=== PATIENT | female | born 2000 | race Hispanic/Latino ===

== ENCOUNTER 2024-03-16 00:45 | Emergency (ER) | payer OTHER, MEDICAID, SELFPAY ==
[2024-03-16] VITALS (8 sets, daily range): BP systolic 113–119; BP diastolic 55–56; PULSE 92–121; RESP 16; TEMP 36.7; O2SAT 98–100; BMI 31.6
--- NOTE | 2024-03-16 00:50 | DI.US.S_ITS ---
PROCEDURE: US PELVIC COMPLETE INDICATIONS: ABD PAIN IN TECHNIQUE: Real-time scanning was performed of the pelvic organs, with image documentation. Additional endovaginal scanning was necessary due to incomplete visualization of the adnexal and endometrial structures by transabdominal scanning. Doppler and color flow imaging was also performed to evaluate arterial and venous blood flow to the bilateral ovaries. COMPARISON: None. FINDINGS: Uterus: Uterus is anteverted and normal in size at 7.8 x 5.1 x 6.2 cm. The myometrium is homogeneous. The endometrium measures 15.7 mm combined thickness. No intrauterine gestational sac identified. Patient with reported test and LMP of 02/12/2024 corresponding to estimated gestational age of 4 weeks, 5 days. Ovaries: The right ovary measures 2.0 x 3.6 x 2.4 cm, with a calculated ovarian volume of 9.1 cc. The left ovary measures 2.3 x 1.5 x 2.7 cm, with a calculated ovarian volume of 4.8 cc. The ovaries have a normal sonographic appearance. Less than 12 follicles can be seen in each ovary. There is a simple right adnexal cyst measuring up to 1.5 cm. Doppler and color flow imaging demonstrate intact arterial and venous blood flow to the bilateral ovaries. Other: No pathologic free abdominal or pelvic fluid. IMPRESSION: No intrauterine gestational sac identified. No sonographic evidence of ectopic at this time. Recommend serial beta HCG and pelvic ultrasound as clinically indicated. Approved by: Ivy Loo M.D.,Ph.D. on 03/16/2024 at 2:20
[2024-03-16 00:59] LABS: Add Manual Diff / Slide Review NO; Basophils Absolute Auto 0 /uL (0-100); Basophils Percent Auto 0.4 % (0-2); Eosinophils Absolute Auto 100 /uL (0-450); Eosinophils Percent Auto 0.8 % (2-4); Hemoglobin 13.8 g/dL (12.0-16.0); Lymphocytes Absolute Auto 4900 /uL (1100-4500); Lymphocytes Percent Auto 38.5 % (25-40); Mean Corpuscular HGB Conc 32.8 % (30-36); Mean Corpuscular Hemoglobin 26.3 PG (26-34); Monocytes Absolute Auto 700 /uL (0-900); Monocytes Percent Auto 5.6 % (3-14); Neutrophils Absolute Auto 7000 /uL (1500-7000); Neutrophils Percent Auto 54.7 % (50-75); Platelet Count 239 X10^3/uL (150-400); Red Blood Cell Count 5.24 X10^6/uL (4.0-5.2); Red Cell Distribution Width 15.7 % (11.6-14.8); White Blood Cell Count 12.8 X10^3/uL (4.5-11.0)
[2024-03-16 01:06] LABS: Alanine Aminotransferase 21 IU/L (<35); Albumin 4.8 g/dL (3.5-5.0); Albumin Globulin Ratio 1.3 (1.0-2.8); Alkaline Phosphatase 80 U/L (38-126); Aspartate Aminotransferase 32 IU/L (14-36); BUN Creatinine Ratio 28.6 (6-22); Bilirubin Total 0.7 mg/dL (0.2-1.3); Blood Urea Nitrogen 18 mg/dL (7-17); Calcium 9.5 mg/dL (8.4-10.2); Carbon Dioxide 21 mmol/L (22-32); Chloride 108 mmol/L (98-107); Estimated Glomerular Filt Rate > 60 mL/min (>60); Globulin 3.8 g/dL (1.7-4.1); Glucose 101 mg/dL (70-100); HEMOLYSIS 89 (0-50); Potassium 4.1 mmol/L (3.4-5.1); Sodium 139 mmol/L (137-145); Total Protein 8.6 g/dL (6.3-8.2)
--- NOTE | 2024-03-16 01:11 | ED.ABDPAIN ---
HPI - Abdominal Pain General Chief Complaint: Abdominal Pain Stated Complaint: abd pain Time Seen by Provider: 03/16/24 00:50 Source: EMS Mode of arrival: Ambulatory History of Present Illness HPI narrative: 23-year-old G4 P 1 presents for upper abdominal cramping and pain. Patient states that she had a recent positive test and was told that her hCG quant levels were in the 40s earlier this week at her primary doctor's office in [facility]. Patient states that she had some stomach cramping last night, but this evening the pain woke her up from sleep. She described it as both ?food poisoning and contractions at once? all across her abdomen. She states that the pain was causing her to feel faint and so she called 911. Patient declined medications EN route by EMS. Patient has no confirmed IUP this . Denies history of intra-abdominal surgeries Related Data Previous Rx's Medication Instructions Recorded dicyclomine 20 mg tablet 20 mg PO TID #30 tabs 03/16/24 ondansetron 4 mg disintegrating 4 mg PO Q8H PRN nausea and 03/16/24 tablet vomiting #30 tabs Allergies Allergy/AdvReac Type Severity Reaction Status Date / Time cephalexin Allergy Verified 03/16/24 01:51 hydrocodone Allergy Verified 03/16/24 01:51 propranolol Allergy Verified 03/16/24 01:51 Patient History Social History Smoking Status: Never smoker Smoking Status: Never smoker Substance Use Type: does not use Exam Initial Vital Signs Initial Vital Signs: Vital Signs Temperature 98.1 F 03/16/24 00:53 Pulse Rate 113 H 03/16/24 00:53 Respiratory Rate 16 03/16/24 00:53 Blood Pressure 113/55 L 03/16/24 00:53 Pulse Oximetry 100 03/16/24 00:53 Oxygen Delivery Method Room Air 03/16/24 00:53 Const: Awake, alert, in pain, uncomfortable Cardiac: Tachycardia, regular rhythm RESP: unlabored, clear bilaterally, no wheezing GI: Soft, generalized upper quadrant tenderness to deep palpation, no rebound, no guarding Skin: Warm, Dry, intact, no rashes Neuro: AO x3, CN II-XII grossly intact, moves all extremities Course Orders Ordered: Discontinued Medications Morphine Sulfate (Morphine 4 Mg/Ml Inj) 4 mg IV NOW ONE Stop: 03/16/24 01:13 Last Admin: 03/16/24 01:58 Dose: Not Given Documented By: MAXIMO Vital Signs Vital signs: Vital Signs - 8 hr 03/16/24 00:53 Temperature 98.1 F Pulse Rate 113 H Respiratory Rate 16 Blood Pressure 113/55 L Pulse Oximetry 100 Oxygen Delivery Method Room Air MDM - Abdominal Pain Lab Data 03/16/24 00:34 03/16/24 00:34 Labs: Lab Results 03/16/24 Range/Units 00:34 WBC 12.8 H (4.5-11.0) X10^3/uL RBC 5.24 H (4.0-5.2) X10^6/uL Hgb 13.8 (12.0-16.0) g/dL Hct 42.0 (36-46) % MCV 80.0 (80-100) fL MCH 26.3 (26-34) PG MCHC 32.8 (30-36) % RDW 15.7 H (11.6-14.8) % Plt Count 239 (150-400) X10^3/uL Neut % (Auto) 54.7 (50-75) % Lymph % (Auto) 38.5 (25-40) % [place] % (Auto) 5.6 (3-14) % Eos % (Auto) 0.8 L (2-4) % Baso % (Auto) 0.4 (0-2) % Neut # (Auto) 7000 (5791-1430) /uL Lymph # (Auto) 4900 H (0939-6796) /uL [place] # (Auto) 700 (0-900) /uL Eos # (Auto) 100 (0-450) /uL Baso # (Auto) 0 (0-100) /uL Sodium 139 (137-145) mmol/L Potassium 4.1 (3.4-5.1) mmol/L Chloride 108 H (98-107) mmol/L Carbon Dioxide 21 L (22-32) mmol/L BUN 18 H (7-17) mg/dL Creatinine 0.63 (0.52-1.04) mg/dL Estimated GFR > 60 (>60) mL/min BUN/Creatinine Ratio 28.6 H (6-22) Glucose 101 H (70-100) mg/dL Calcium 9.5 (8.4-10.2) mg/dL Total Bilirubin 0.7 (0.2-1.3) mg/dL AST 32 (14-36) IU/L ALT 21 (<35) IU/L Alkaline Phosphatase 80 (38-126) U/L Total Protein 8.6 H (6.3-8.2) g/dL Albumin 4.8 (3.5-5.0) g/dL Globulin 3.8 (1.7-4.1) g/dL Albumin/Globulin Ratio 1.3 (1.0-2.8) Lipase 88 (23-300) U/L HCG, Quant 213.23 mIU/mL Imaging Data US - APPLIANCE SALES [employer]OCIATE: Radiologist's Impression: PROCEDURE: US PELVIC COMPLETE INDICATIONS: ABD PAIN IN TECHNIQUE: Real-time scanning was performed of the pelvic organs, with image documentation. Additional endovaginal scanning was necessary due to incomplete visualization of the adnexal and endometrial structures by transabdominal scanning. Doppler and color flow imaging was also performed to evaluate arterial and venous blood flow to the bilateral ovaries. COMPARISON: None. FINDINGS: Uterus: Uterus is anteverted and normal in size at 7.8 x 5.1 x 6.2 cm. The myometrium is homogeneous. The endometrium measures 15.7 mm combined thickness. No intrauterine gestational sac identified. Patient with reported test and LMP of 02/12/2024 corresponding to estimated gestational age of 4 weeks, 5 days. Ovaries: The right ovary measures 2.0 x 3.6 x 2.4 cm, with a calculated ovarian volume of 9.1 cc. The left ovary measures 2.3 x 1.5 x 2.7 cm, with a calculated ovarian volume of 4.8 cc. The ovaries have a normal sonographic appearance. Less than 12 follicles can be seen in each ovary. There is a simple right adnexal cyst measuring up to 1.5 cm. Doppler and color flow imaging demonstrate intact arterial and venous blood flow to the bilateral ovaries. Other: No pathologic free abdominal or pelvic fluid. IMPRESSION: No intrauterine gestational sac identified. No sonographic evidence of ectopic at this time. Recommend serial beta HCG and pelvic ultrasound as clinically indicated. Approved by: Ivy Loo M.D.,Ph.D. on 03/16/2024 at 2:20 MDM Narrative Medical decision making narrative: Abdominal pain in early . Possibility that this is unlikely related to as pain is more in the bilateral upper quadrants of her abdomen, however since she is in 1st trimester with positive hCG earlier in the week an ultrasound was ordered. Patient was given pain medications and laboratory work ordered. Laboratory work shows WBC count 12.8, hemoglobin 13.8, platelets 239, sodium 139, potassium 4.1, creatinine 0.63, normal liver enzymes, hCG quant 213, up from earlier in the week per patient report. Ultrasound shows no IUP, no other concerning findings. At this patient's hCG level unlikely that anything would be seen at this stage. No evidence of ectopic . Patient reassessed, states that she feels significantly better. Lab and imaging findings explained to patient, unable to obtain CT due to positive status. Antispasmodic and antinausea medication sent to pharmacy of choice. Patient counseled on the importance of OBGYN follow up. Strict ED return precautions discussed at bedside. Discharge Plan Departure Patient Disposition: Home Clinical Impression: Abdominal cramping, Early stage of Instructions: DI for Abdominal Pain -- Early Activity Restrictions/Additional Instructions: Your laboratory work here today is reassuring. Your hCG quant level is 213. An antispasmodic medication has been sent to your pharmacy as well as nausea medication that are safe in . Prescriptions: New dicyclomine 20 mg tablet 20 mg PO TID Qty: 30 0RF ondansetron 4 mg tablet,disintegrating 4 mg PO Q8H PRN (Reason: nausea and vomiting) Qty: 30 0RF Referrals: See Santos DO [Primary Care Provider] - Stand Alone Forms: Patient Portal/API
[2024-03-16 01:23] LABS: HCG Quantitative /Beta subunit 213.23 mIU/mL
[2024-03-16 01:35] LABS: Lipase 88 U/L (23-300)
== END 2024-03-16 04:35 | disposition home or self-care (01) ==
PROVIDERS: Emergency Provider Emergency Medicine; PCP Family Medicine
DX: O26.891 Other specified pregnancy related conditions, first trimester (principal); R10.10 Upper abdominal pain, unspecified; Z3A.00 Weeks of gestation of pregnancy not specified
CPT/HCPCS: 36415; 76830; 76856; 80053; 83690; 84702; 85025; 93975; 99283; 99284

== ENCOUNTER 2024-04-12 20:12 | Emergency (ER) | payer OTHER, MEDICAID, SELFPAY ==
[2024-04-12 20:17] VITALS: BP 99/52; PULSE 94; RESP 18; TEMP 36.7; O2SAT 97; BMI 32.9
--- NOTE | 2024-04-12 20:44 | ED_ITS ---
HPI - Nausea/Vomiting/Diarrhea General Chief complaint: Nausea/Vomiting/Diarrhea Stated complaint: sent by doctor, 8weeks , N/V Time Seen by Provider: 04/12/24 20:41 Source: patient Mode of arrival: Ambulatory History of Present Illness HPI Narrative: 23-year-old female current , AB1, last menstrual period 02/12/2024, [facility], clinic at [facility], we will be transitioning to [place] as she advances through the , lives in [facility], had ultrasound [facility] imaging yesterday and was told she was at gestation 8 weeks 5 days. She has had ongoing nausea and vomiting this , has prescription for ODT Zofran, took 1 of these tablets during the day today. Still feels quite nauseated, unable to keep medicines or food down. No diarrhea. No black or red stools. No injury or trauma. She denies any headache or neck pain or photophobia symptoms. She denies chest pain or shortness of breath. She has not had vaginal bleeding or spotting. She has no vaginal discharge. She has not had pain with urination. She denies flank pain. Related Data Previous Rx's Medication Instructions Recorded dicyclomine 20 mg tablet 20 mg PO TID #30 tabs 03/16/24 ondansetron 4 mg disintegrating 4 mg PO Q8H PRN nausea and 03/16/24 tablet vomiting #30 tabs nitrofurantoin macrocrystal 100 mg 100 mg PO BID 7 days #14 caps 04/12/24 capsule (Macrodantin) Allergies Allergy/AdvReac Type Severity Reaction Status Date / Time cephalexin Allergy Verified 04/12/24 20:50 hydrocodone Allergy Verified 04/12/24 20:50 propranolol Allergy Verified 04/12/24 20:50 Review of Systems Review of Systems Narrative: see HPI Patient History Social History Smoking Status: Never smoker Smoking Status: Never smoker Substance Use Type: does not use Exam Narrative Exam Narrative: GENERAL: Well-developed patient, in mild distress. HEAD: Atraumatic. Normocephalic. EYES: Pupils equal round and reactive. Extraocular motions intact. No scleral icterus. No injection or drainage. ENT: Nose without bleeding, purulent drainage. Throat without erythema, tonsillar hypertrophy or exudate. Airway patent. NECK: Trachea midline. Non tender CARDIOVASCULAR: Regular rate and rhythm without murmurs, gallops, or rubs. RESPIRATORY: Clear to auscultation. Breath sounds equal bilaterally. No wheezes, rales, or rhonchi. GASTROINTESTINAL: Abdomen soft, non-tender, nondistended. EXTREMITIES: No edema or joint tenderness. BACK: Nontender without deformity or crepitance. No flank tenderness. NEURO: AOx3. SKIN: No rash or erythema of visible areas Initial Vital Signs Initial Vital Signs: Vital Signs Temperature 98.1 F 04/12/24 20:17 Pulse Rate 94 H 04/12/24 20:17 Respiratory Rate 18 04/12/24 20:17 Blood Pressure 99/52 L 04/12/24 20:17 Pulse Oximetry 97 04/12/24 20:17 Oxygen Delivery Method Room Air 04/12/24 20:17 Course Orders Ordered: ED Orders 04/12/24 20:37 Ictotest Urine Stat Urine Culture Stat Urine Microscopic Stat 04/12/24 20:40 Complete Blood Count AUTO DIFF Stat Comprehensive Metabolic Panel Stat Lipase Stat Discontinued Medications Diphenhydramine HCl (Diphenhydramine 25 Mg Tablet) 50 mg PO NOW ONE Stop: 04/12/24 23:26 Last Admin: 04/12/24 23:31 Dose: 50 mg Documented By: ALO Sodium Chloride (Normal Saline 0.9%) 1,000 mls @ 1,000 mls/hr IV BOLUS ONE Stop: 04/12/24 22:04 Last Infusion: 04/12/24 22:06 Dose: Infused Documented By: Admin: 04/12/24 21:06 Dose: 1,000 mls/hr Documented By: JEWEL Ceftriaxone Sodium 1,000 mg/ (Sodium Chloride) 100 mls @ 200 mls/hr IV NOW ONE Stop: 04/12/24 22:08 Last Infusion: 04/12/24 22:58 Dose: Infused Documented By: Admin: 04/12/24 22:25 Dose: 200 mls/hr Documented By: JEWEL Ondansetron HCl (Ondansetron 4 Mg/2 Ml Inj) 4 mg IV NOW PRN PRN Reason: Nausea And Vomiting Ondansetron HCl (Ondansetron 4 Mg Odt) 4 mg PO NOW PRN PRN Reason: Nausea And Vomiting Ondansetron HCl (Ondansetron 4 Mg/2 Ml Inj) 4 mg IV NOW ONE Stop: 04/12/24 20:54 Last Admin: 04/12/24 21:04 Dose: 4 mg Documented By: JEWEL Vital Signs Vital signs: Vital Signs - 8 hr 04/12/24 20:17 04/12/24 23:18 04/12/24 23:19 Temperature 98.1 F Pulse Rate 94 H 92 H Respiratory Rate 18 Blood Pressure 99/52 L 99/65 Pulse Oximetry 97 99 Oxygen Delivery Method Room Air 04/12/24 23:19 Temperature Pulse Rate 89 Respiratory Rate Blood Pressure Pulse Oximetry 99 Oxygen Delivery Method MDM - Nausea/Vomiting/Diarrhea Lab Data Attestation: I reviewed the patient's lab results. 04/12/24 20:40 04/12/24 20:40 Labs: Lab Results 04/12/24 04/12/24 Range/Units 20:37 20:40 WBC 11.5 H (4.5-11.0) X10^3/uL RBC 5.02 (4.0-5.2) X10^6/uL Hgb 13.3 (12.0-16.0) g/dL Hct 40.2 (36-46) % MCV 80.1 (80-100) fL MCH 26.6 (26-34) PG MCHC 33.2 (30-36) % RDW 15.3 H (11.6-14.8) % Plt Count 279 (150-400) X10^3/uL Neut % (Auto) 66.8 (50-75) % Lymph % (Auto) 24.9 L (25-40) % [place] % (Auto) 7.2 (3-14) % Eos % (Auto) 0.5 L (2-4) % Baso % (Auto) 0.6 (0-2) % Neut # (Auto) 7700 H (7267-7142) /uL Lymph # (Auto) 2900 (5144-7657) /uL [place] # (Auto) 800 (0-900) /uL Eos # (Auto) 100 (0-450) /uL Baso # (Auto) 100 (0-100) /uL Sodium 137 (137-145) mmol/L Potassium 3.6 (3.4-5.1) mmol/L Chloride 104 (98-107) mmol/L Carbon Dioxide 23 (22-32) mmol/L BUN 8 (7-17) mg/dL Creatinine 0.63 (0.52-1.04) mg/dL Estimated GFR > 60 (>60) mL/min BUN/Creatinine Ratio 12.7 (6-22) Glucose 97 (70-100) mg/dL Calcium 9.6 (8.4-10.2) mg/dL Total Bilirubin 0.9 (0.2-1.3) mg/dL AST 73 H (14-36) IU/L ALT 89 H (<35) IU/L Alkaline Phosphatase 74 (38-126) U/L Total Protein 8.6 H (6.3-8.2) g/dL Albumin 4.7 (3.5-5.0) g/dL Globulin 3.9 (1.7-4.1) g/dL Albumin/Globulin Ratio 1.2 (1.0-2.8) Lipase 59 (23-300) U/L Ur Bilirubin Confirm Negative (Negative) Urine RBC 0-1/hpf (0-5/HPF) Urine WBC 1-5/hpf (0-5/HPF) Ur Squamous Epith Cells None seen (0-5/HPF) Urine Bacteria Many (>30) H (None) Urine Mucus 1+ H (Negative) Ur Culture Indicated? Specimen cultured Vol Urine Centrifuged 10ml (spun) Urine Dip Bedside Urine Glucose Negative Bedside Urine Bilirubin + 1 Bedside Urine Ketone + 15 Urine Specific [place] 1.030 Bedside Urine Occult Blood - Negative Bedside Urine pH 5.5 Bedside Urine Protein +/- 15 Bedside Urine Urobilinogen - Negative Bedside Urine Nitrite - Negative Bedside Urine Leukocytes +/- 15 Esterase MDM Narrative Medical decision making narrative: 23-year-old female currently at 8 weeks 6 days by ultrasound done yesterday [facility] [employer] [facility], ongoing nausea through this for which she is tried ODT Zofran, worsening nausea and vomiting today nonbloody. Afebrile, sirs screen negative. Abdomen benign. No vaginal bleeding symptoms. IV fluid, IV Zofran given, improved symptoms. Urinalysis did show predominance of bacteriuria without many inflammatory cells, urine culture requested in context of . First dose antibiotic Macrobid given, prescription for 7 day course. Advised follow up Monday to check urine culture in symptoms in her regular provider clinic, follow up with OB provider as planned. If confirmation of urinary tract infection advised also follow up urinalysis to document culture of cure. Improved, discharged home. Return precautions discussed Discharge Plan Departure Patient Disposition: Home Clinical Impression: Hyperemesis gravidarum, Urinary tract infection Instructions: DI for Urinary Tract Infection (UTI), DI for Vomiting -- Adult Activity Restrictions/Additional Instructions: Current with morning sickness symptoms, home supply of ODT oral dissolvable Zofran used on occasion, worsening nausea and vomiting today. No fever on triage. Urinalysis was suspicious for infection, urine culture requested, IV ceftriaxone antibiotic given. Subsequently plan was to consider cephalosporins for discharge antibiotic, however the computer prompted allergy warning, history of cephalexin cephalosporins allergic reaction. He seemed to be tolerating the ceftriaxone quite well, it is a 3rd generation cephalosporin. We could give a 3rd generation oral cephalosporin but perhaps we should just avoid cephalosporins in general for now. Antibiotic Macrobid/Macrodantin antibiotic sent to your pharmacy for further antibiotic coverage for urinary tract infection. If you have any itching or rash symptoms consider delayed reaction to ceftriaxone, would start Benadryl medication, call 911 if you have trouble breathing or tightening of the throat symptoms or any other concerns of possible reaction to the single dose ceftriaxone. Regarding your urinary tract infection, drink plenty of fluids. You were given IV fluids while in the emergency department, and antinausea medications, felt better. Continue to use your antinausea medications as needed. Continue to follow up with your OB providers as planned. Consider recheck in clinic on Monday to make sure your symptoms are improving, and also to make sure the urine culture shows appropriate antibiotic prescribed. Consider recheck at the end of the course of your antibiotic to make sure that the infection has cleared, in the context of your current . Prescriptions: New nitrofurantoin macrocrystal [Macrodantin] 100 mg capsule 100 mg PO BID 7 Days Qty: 14 0RF Rx Instructions: must administer with a meal/food No Action dicyclomine 20 mg tablet 20 mg PO TID Qty: 30 0RF ondansetron 4 mg tablet,disintegrating 4 mg PO Q8H PRN (Reason: nausea and vomiting) Qty: 30 0RF Referrals: See Santos DO [Primary Care Provider] - Stand Alone Forms: Patient Portal/API
[2024-04-12 20:54] LABS: Add Manual Diff / Slide Review NO; Basophils Absolute Auto 100 /uL (0-100); Basophils Percent Auto 0.6 % (0-2); Eosinophils Absolute Auto 100 /uL (0-450); Eosinophils Percent Auto 0.5 % (2-4); Hematocrit 40.2 % (36-46); Hemoglobin 13.3 g/dL (12.0-16.0); Lymphocytes Absolute Auto 2900 /uL (1100-4500); Lymphocytes Percent Auto 24.9 % (25-40); Mean Corpuscular HGB Conc 33.2 % (30-36); Mean Corpuscular Hemoglobin 26.6 PG (26-34); Mean Corpuscular Volume 80.1 fL (80-100); Monocytes Absolute Auto 800 /uL (0-900); Monocytes Percent Auto 7.2 % (3-14); Neutrophils Absolute Auto 7700 /uL (1500-7000); Neutrophils Percent Auto 66.8 % (50-75); Platelet Count 279 X10^3/uL (150-400); Red Blood Cell Count 5.02 X10^6/uL (4.0-5.2); Red Cell Distribution Width 15.3 % (11.6-14.8); White Blood Cell Count 11.5 X10^3/uL (4.5-11.0)
[2024-04-12 20:55] LABS: Ictotest Urine Negative (Negative)
[2024-04-12 21:01] LABS: Alanine Aminotransferase 89 IU/L (<35); Albumin 4.7 g/dL (3.5-5.0); Albumin Globulin Ratio 1.2 (1.0-2.8); Alkaline Phosphatase 74 U/L (38-126); Aspartate Aminotransferase 73 IU/L (14-36); BUN Creatinine Ratio 12.7 (6-22); Bilirubin Total 0.9 mg/dL (0.2-1.3); Blood Urea Nitrogen 8 mg/dL (7-17); Calcium 9.6 mg/dL (8.4-10.2); Carbon Dioxide 23 mmol/L (22-32); Chloride 104 mmol/L (98-107); Estimated Glomerular Filt Rate > 60 mL/min (>60); Globulin 3.9 g/dL (1.7-4.1); Glucose 97 mg/dL (70-100); HEMOLYSIS < 15 (0-50); Lipase 59 U/L (23-300); Potassium 3.6 mmol/L (3.4-5.1); Sodium 137 mmol/L (137-145); Total Protein 8.6 g/dL (6.3-8.2)
[2024-04-12] MEDS: ONDANSETRON 4 MG/2 ML INJ IV (21:04)
[2024-04-12] MEDS: SODIUM CHLORIDE 0.9% 1,000 ML 1000 ML IV (21:06)
[2024-04-12 21:11] LABS: Bacteria Urine Many (>30); RBC Urine 0-1/HPF (0-5/HPF); Squamous Epithelial Cell Urine None Seen (0-5/HPF); Urine Volume 10mL (spun); WBC Urine 1-5/HPF (0-5/HPF)
[2024-04-12 21:12] LABS: Culture Indicated Urine Specimen Cultured; Mucus Urine 1+ (Negative)
[2024-04-12] MEDS: cefTRIAXone 1,000 MG in SODIUM CHLORIDE 0.9% 100 ML 200 MG IV (22:25)
[2024-04-12 23:18] VITALS: PULSE 92; O2SAT 99
[2024-04-12 23:19] VITALS: BP 99/65; PULSE 89; O2SAT 99
[2024-04-12] MEDS: diphenhydrAMINE 25 MG TABLET 50 MG PO (23:31)
== END 2024-04-12 23:32 | disposition home or self-care (01) ==
PROVIDERS: Emergency Provider Emergency Medicine; PCP Family Medicine
DX: O21.0 Mild hyperemesis gravidarum (principal); O23.41 Unspecified infection of urinary tract in pregnancy, first trimester; N39.0 Urinary tract infection, site not specified; Z3A.08 8 weeks gestation of pregnancy
CPT/HCPCS: 80053; 81003; 81015; 83690; 85025; 87086; 96361; 96365; 96375; 99284; J0696; J2405